=== PATIENT | female | born 1990 | race African-American/Black ===

== ENCOUNTER 2018-01-02 00:36 | Emergency (ER) | payer BC, OTHER | END 2018-01-02 01:40 | disposition home or self-care (01) | LOC: JER 00:36 | DX: L72.8 Other follicular cysts of the skin and subcutaneous tissue (principal) | CPT/HCPCS: 99281-25 ==

== ENCOUNTER 2018-11-18 23:06 | Emergency (ER) | payer OTHER ==
[2018-11-18 23:20] VITALS: BP 114/79; PULSE 73; TEMP 98.5; BMI 23.8
--- NOTE | 2018-11-19 01:36 | PDOC ---
History of Present Illness - General Chief Complaint: Laceration Stated Complaint: LACERATION Time Seen by Provider: 11/19/18 01:36 History Source: Patient - History of Present Illness Initial Comments: 11/19/18 03:01 28 year old female c/o right great toe laceration after dropping a glass tea pot on foot at 10pm. no sensation loss, full rom. last tetanus 2 year ago Past History - Past Medical History Allergies/Adverse Reactions: Allergies Allergy/AdvReac Type Severity Reaction Status Date / Time No Known Allergies Allergy Verified 11/18/18 23:16 Home Medications: Ambulatory Orders No Home Medications 0 dose .ROUTE UTDICT 03/30/13 Nitrofurantoin Monohyd/M-Cryst [Macrobid] 100 mg PO BID #6 capsule 10/20/13 COPD: No - Suicide/Smoking/Psychosocial Hx Smoking Status: No Smoking History: Never smoked Number of Cigarettes Smoked Daily: 0 Substance Use Type: None Review of Systems - Review of Systems Able to Perform ROS?: Yes Is the patient limited Swedish proficient: No ABD/GI: No: Symptoms Reported, See HPI, Abdominal Distended, Abd. Pain w/ defecation, Blood Streaked Bowels, Constipated, Diarrhea, Difficulty Swallowing , Nausea, Poor Appetite, Poor Fluid Intake, Rectal Bleeding, Vomiting, Indigestion, Abdominal cramping, Tarry Stools, Other *Physical Exam - Vital Signs Last Vital Signs Temp Pulse Resp BP Pulse Ox 98.5 F 73 18 114/79 100 11/18/18 23:17 11/18/18 23:17 11/18/18 23:17 11/18/18 23:17 11/18/18 23:17 - Physical Exam General Appearance: Yes: Appropriately Dressed Extremity: positive: Other (right great toe laceration ). negative: Erythema Integumentary: positive: Normal Color, Dry, Warm Neurologic: positive: Fully Oriented, Alert Moderate Sedation - Procedure Monitoring Vital Signs: Procedure Monitoring Vital Signs Temperature 98.5 F 11/18/18 23:17 Pulse Rate 73 11/18/18 23:17 Respiratory Rate 18 11/18/18 23:17 Blood Pressure 114/79 11/18/18 23:17 O2 Sat by Pulse Oximetry (%) 100 11/18/18 23:17 Progress Note - Progress Note Progress Note: A: right great toe laceration P: xray: no foreign body tetanus UTD see procedure note. *DC/Admit/Observation/Transfer Diagnosis at time of Disposition: Laceration of toe Qualifiers: Encounter type: initial encounter Toe: great toe Damage to nail status: without damage Foreign body presence: without foreign body Laterality: right Qualified Code(s): S91.111A - Laceration without foreign body of right great toe without damage to nail, initial encounter - Discharge Dispostion Disposition: HOME - Referrals - Patient Instructions Printed Discharge Instructions: DI for Laceration Repair Additional Instructions: return to the ER in 10 days for suture removal. follow up with your doctor in 2 - days for a wound check. Additional Instructions: * Please call your personal physician to report your Emergency Department visit and to report your progress, if any. * If there is no improvement in symptoms in 2 days call your physician. * Return to the Emergency Department for any worsening symptoms. - Post Discharge Activity Forms/Work/School Notes: Back to Work
--- NOTE | 2018-11-19 01:38 | PDOC ---
*Physical Exam - Vital Signs Last Vital Signs Temp Pulse Resp BP Pulse Ox 98.5 F 73 18 114/79 100 11/18/18 23:17 11/18/18 23:17 11/18/18 23:17 11/18/18 23:17 11/18/18 23:17 Medical Decision Making - Medical Decision Making 11/19/18 01:38 Patient seen by the advanced practice provider under my direct supervision. Ancillary testing reviewed as necessary. I agree with plan as outlined by the advanced practice provider. *DC/Admit/Observation/Transfer Diagnosis at time of Disposition: Laceration - Referrals - Patient Instructions - Post Discharge Activity
--- NOTE | 2018-11-19 04:02 | PDOC ---
*Physical Exam - Vital Signs Last Vital Signs Temp Pulse Resp BP Pulse Ox 98.5 F 73 18 114/79 100 11/18/18 23:17 11/18/18 23:17 11/18/18 23:17 11/18/18 23:17 11/18/18 23:17 *DC/Admit/Observation/Transfer Diagnosis at time of Disposition: Laceration of toe Qualifiers: Encounter type: initial encounter Toe: great toe Damage to nail status: without damage Foreign body presence: without foreign body Laterality: right Qualified Code(s): S91.111A - Laceration without foreign body of right great toe without damage to nail, initial encounter - Referrals - Patient Instructions Printed Discharge Instructions: DI for Laceration Repair - Post Discharge Activity Laceration/Wound Repair - Laceration/Wound Repair Right Dorsal Toe 1st digit Depth, Shape: flap Irrigated w/ Saline: Yes Anesthesia: 1% Lidocaine Wound Repaired With: Sutures (5 sutures of simple interrupted) Suture Size/Type: 5:0, other (surgipro) Remarks: Patient tolerated procedure well
== END 2018-11-19 04:44 | disposition home or self-care (01) ==
LOC: JER 23:06
PROC: 0HQMXZZ Repair Right Foot Skin, External Approach (ICD-10-PCS; principal; 2018-11-18)
DX: S91.111A Laceration without foreign body of right great toe without damage to nail, initial encounter (principal); W25.XXXA Contact with sharp glass, initial encounter; Y93.89 Activity, other specified; Y92.038 Other place in apartment as the place of occurrence of the external cause; Y99.8 Other external cause status
CPT/HCPCS: 12001; 73660-TC-FY; 99281-25

== ENCOUNTER 2018-11-29 18:40 | Emergency (ER) | payer OTHER ==
--- NOTE | 2018-11-29 19:06 | PDOC ---
Rapid Medical Evaluation Time Seen by Provider: 11/29/18 19:06 Medical Evaluation: Allergies Allergy/AdvReac Type Severity Reaction Status Date / Time No Known Allergies Allergy Verified 11/18/18 23:16 11/29/18 19:06 I have performed a brief in-person evaluation of this patient. The patient presents with a chief complaint of:suture removal to R sushma lombardo. No complaints today. Wound healing well per pt Pertinent physical exam findings:Well iliana I have ordered the following:nothing The patient will proceed to the ED for further evaluation. 11/29/18 19:06 Discharge Disposition - Diagnosis Visit for suture removal - Referrals - Patient Instructions - Post Discharge Activity
[2018-11-29 19:11] VITALS: BP 108/69; PULSE 81; TEMP 98.3; BMI 24.1
--- NOTE | 2018-11-29 19:51 | PDOC ---
Suture Removal/Wound Check HPI - History of Present Illness Chief Complaint: Suture/Staple Removal(Here) Stated Complaint: SUTURE REMOVAL Time Seen by Provider: 11/29/18 19:06 History Source: Yes: Patient Exam Limitations: Yes: No Limitations Treated at: [facility] ED - Previous ED Treatment Type of procedure performed on last visit: Yes: Laceration Repair Tetanus Immunization: Yes: Up to Date - Onset of Previous Treatment Date of Occurence: 11/20/18 Past History - Travel Traveled outside of the country in the last 30 days: No Close contact w/someone who was outside of country & ill: No - Past Medical History Allergies/Adverse Reactions: Allergies Allergy/AdvReac Type Severity Reaction Status Date / Time No Known Allergies Allergy Verified 11/29/18 19:08 Home Medications: Ambulatory Orders No Home Medications 0 dose .ROUTE UTDICT 03/30/13 Nitrofurantoin Monohyd/M-Cryst [Macrobid] 100 mg PO BID #6 capsule 10/20/13 COPD: No - Suicide/Smoking/Psychosocial Hx Smoking Status: No Smoking History: Never smoked Number of Cigarettes Smoked Daily: 0 Hx Alcohol Use: No Drug/Substance Use Hx: No Substance Use Type: None *Review of Systems - Review of Systems Able to Perform ROS?: Yes Constitutional: Yes: See HPI. No: Symptoms Reported HEENTM: No: Symptoms Reported Integumentary: Yes: See HPI. No: Symptoms Reported, Bruising Neurological: Yes: See HPI. No: Symptoms reported All Other Systems: Reviewed and Negative *Physical Exam - Vital Signs Last Vital Signs Temp Pulse Resp BP Pulse Ox 98.3 F 81 16 108/69 100 11/29/18 19:07 11/29/18 19:07 11/29/18 19:07 11/29/18 19:07 11/29/18 19:07 - Physical Exam General Appearance: Yes: Nourished, Appropriately Dressed. No: Apparent Distress HEENT: positive: AMITA Neck: positive: Supple Gastrointestinal/Abdominal: positive: Tender Musculoskeletal: positive: Normal Inspection Extremity: positive: Normal Capillary Refill, Normal Inspection, Normal Range of Motion Medical Decision Making - Medical Decision Making 11/29/18 19:48 6 sutures removbed from left great toe- primary approximated- dressed wiht steristrips-= tolerated well. *DC/Admit/Observation/Transfer Diagnosis at time of Disposition: Visit for suture removal - Discharge Dispostion Disposition: HOME Condition at time of disposition: Stable Decision to Admit order: No - Referrals - Patient Instructions Printed Discharge Instructions: DI for Suture Removal - Post Discharge Activity
== END 2018-11-29 19:55 | disposition home or self-care (01) ==
LOC: JERFT 18:40
DX: Z48.817 Encounter for surgical aftercare following surgery on the skin and subcutaneous tissue (principal); Z48.02 Encounter for removal of sutures
CPT/HCPCS: 99281-25